=== PATIENT | female | born 1965 | race Caucasian/White ===

== ENCOUNTER 2017-10-31 15:03 | Observation (INO) | payer OTHER ==
--- OUTSIDE RECORDS SUMMARY | 2017-10-31 15:09 | XMS REPORT | Clinical Summary ---
:1965 Author Organization [facility] Address [address] [place] [address] Phone Care Team Providers Name Role Phone Unavailable Primary Care Provider Unavailable Allergies No Known Allergies Current Medications Prescription Sig. Disp. Refills Start Date End Date Status loratadine-pseudoephe Take 1 tablet Active drine (CLARITIN-D by mouth 12-HOUR) 5-120 mg per nightly. tablet naproxen Take 220 mg by Active (ALEVE,ANAPROX,MIDOL) mouth every 6 220 MG tablet (six) hours as needed. predniSONE Take 4 tabs 30 tablet 0 03/22/2016 Active (DELTASONE) 10 MG daily for 3 tablet days, then 3 tabs daily for 3 days, then 2 tabs daily for 3 days then, 1 tab daily for 3 days then stop. gabapentin Take 1 capsule 30 capsule 11 03/22/2016 03/22/2017 (NEURONTIN) 100 MG (100 mg total) capsule by mouth nightly. Active Problems Problem Noted Date Right facial numbness 03/21/2016 Numbness and tingling of right arm 03/21/2016 Social History Tobacco Use Types Packs/Day Years Used Date Never Smoker Sex Assigned at Date Recorded Not on file Last Filed Vital Signs Not on file Plan of Treatment Not on file Results Not on fileafter 10/30/2016
[2017-10-31] MEDS ORDERED: NA CHLORIDE 0.9% 1,000 ML ONE (16:04)
--- NOTE | 2017-10-31 16:26 | RAD REPORT ---
EXAM DESCRIPTION: RAD - Chest Single View - 10/31/2017 4:09 pm CLINICAL HISTORY: Chest pain, abdomen pain COMPARISON: March 2016 TECHNIQUE: AP portable chest image was obtained 1606 hours . FINDINGS: Lungs are clear. Heart and vasculature are normal. No measurable pleural effusion and no p neumothorax. No gross bony abnormality seen. No acute aortic findings suspected. IMPRESSION: No acute cardiopulmonary process. No significant change from comparison.
[2017-10-31 16:47] LABS: Absolute Lymphocytes (CBC) 1.5 K/uL (0.7-4.9); Absolute Monocytes 0.6 K/uL (0.1-1.3); Absolute Neutrophil 3.6 K/uL (1.8-8.0); Basophils % 0.6 % (0-1.3); Lymphocytes % 25.3 % (15.3-44.8); MCH 30.5 pg (27.0-35.0); MCV 90.1 fL (80-100); MPV 8.1 fL (7.6-11.3); Monocytes % 10.1 % (3.3-12.3); RBC Red Blood Cell Count 4.22 M/uL (3.86-4.86)
[2017-10-31 16:56] LABS: ALT/SGPT 29 U/L (12-78); AST/SGOT 23 U/L (15-37); Albumin 3.6 g/dL (3.4-5.0); Alkaline Phosphatase 91 U/L (45-117); BUN Blood Urea Nitrogen 10 mg/dL (7-18); Bicarbonate 27 mmol/L (21-32); Bilirubin Direct < 0.1 mg/dL (0-0.2); Bilirubin Total 0.2 mg/dL (0.2-1.0); Glucose Level 97 mg/dL (74-106); Lipase 216 U/L (73-393); Potassium 3.9 mmol/L (3.5-5.1); Protein, Total 7.7 g/dL (6.4-8.2); Sodium Level 138 mmol/L (136-145)
[2017-10-31] MEDS ORDERED: FENTANYL CITR 100 MCG/2 ML ONE ×2 (17:09→19:06)
[2017-10-31 17:47] LABS: Urine Bacteria <20 /HPF (<20); Urine Culture Reflex Order NOT NEEDED; Urine RBC NONE SEEN /HPF (NONE SEEN)
--- NOTE | 2017-10-31 18:12 | RAD REPORT ---
EXAM DESCRIPTION: CT - Abdomen Pelvis W Contrast - 10/31/2017 5:54 pm CLINICAL HISTORY: Abdominal pain. Left lower quadrant pain and nausea COMPARISON: 2014 TECHNIQUE: Computed axial tomography of the abdomen and pelvis was obtained. 100 cc Isovue-300 is ad ministered intravenously. Oral contrast was given. All CT scans are performed using dose optimization technique as appropriate and may include automated exposure control or mA/KV adjustment according to patient size. FINDINGS: The liver, spleen, pancreas, adrenals and kidneys appear unremarkable. Mild to moderate stranding is present adjacent to proximal sigmoid colon. Diverticula are seen. An ab scess is not noted. Pneumoperitoneum is not seen. A tiny umbilical hernia is present IMPRESSION: Mild to moderate sigmoid diverticulitis 1
[2017-10-31] MEDS ORDERED: CIPROFLOXACIN 400mg IV 400 MG/200 ML BAG IV ONE (19:06)
[2017-10-31] MEDS ORDERED: METRONIDAZOLE 500mg IVPB 500 MG/100 ML BAG IV ONE (19:06)
--- NOTE | 2017-10-31 19:37 | EDPHYS ---
Physician Documentation [facility] Name: Nichole Gamino Age: 52 yrs Sex: Female : 1965 Arrival Date: 10/31/2017 Time: 15:05 Bed 30 Private MD: Dacia Wolf H ED Physician Justin Todd HPI: 10/31 18:34 This 52 yrs old Female presents to ER via Ambulatory with complaints of snw Shoulder Pain, RIB PAIN, CHILLS. 18:34 The patient or guardian complains of pain, that is acute. left trapezius and left lower snw quadrant. Context: resulted from an unknown reason, The patient reports no decreased range of motion. The patient reports no obvious deformity. Onset: The symptoms/episode began/occurred suddenly, this morning. Associated signs and symptoms: Pertinent positives: abdominal pain. Severity of symptoms: At their worst the symptoms were moderate. The patient has not experienced similar symptoms in the past. The patient has not recently seen a physician, the patient's primary care provider is Dr. Dr. Wolf. 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 - Social history:: Smoking status: Patient/guardian denies using tobacco. - Ebola Screening: : Patient denies travel to an Ebola-affected area in the 21 days before illness onset. ROS: 17:30 Constitutional: Negative for fever, chills, and weight loss, Eyes: Negative for injury, snw pain, redness, and discharge, ENT: Negative for injury, pain, and discharge, Neck: Negative for injury, pain, and swelling, Respiratory: Negative for shortness of breath, cough, wheezing, and pleuritic chest pain, Abdomen/GI: Stabbing abdominal pain, denies nausea, vomiting, diarrhea, and constipation, Back: Negative for injury and pain, : Negative for injury, bleeding, discharge, and swelling, MS/Extremity: Negative for injury and deformity, Skin: Negative for injury, rash, and discoloration, Neuro: Negative for headache, weakness, numbness, tingling, and seizure. 17:30 Cardiovascular: Positive for burning pain to left shoulder. Exam: 17:30 Constitutional: This is a well developed, well nourished patient who is awake, alert, snw and in no acute distress. Head/Face: Normocephalic, atraumatic. Eyes: Pupils equal round and reactive to light, extra-ocular motions intact. Lids and lashes normal. Conjunctiva and sclera are non-icteric and not injected. Cornea within normal limits. Periorbital areas with no swelling, redness, or edema. ENT: Nares patent. No nasal discharge, no septal abnormalities noted. Tympanic membranes are normal and external auditory canals are clear. Oropharynx with no redness, swelling, or masses, exudates, or evidence of obstruction, uvula midline. Mucous membranes moist. Neck: Trachea midline, no thyromegaly or masses palpated, and no cervical lymphadenopathy. Supple, full range of motion without nuchal rigidity, or vertebral point tenderness. No Meningismus. Chest/axilla: Normal chest wall appearance and motion. Nontender with no deformity. No lesions are appreciated. Cardiovascular: Regular rate and rhythm with a normal S1 and S2. No gallops, murmurs, or rubs. Normal PMI, no JVD. No pulse deficits. Back: No spinal tenderness. No costovertebral tenderness. Full range of motion. Skin: Warm, dry with normal turgor. Normal color with no rashes, no lesions, and no evidence of cellulitis. MS/ Extremity: Pulses equal, no cyanosis. Neurovascular intact. Full, normal range of motion. Neuro: Awake and alert, GCS 15, oriented to person, place, time, and situation. Cranial nerves II-XII grossly intact. Motor strength 5/5 in all extremities. Sensory grossly intact. Cerebellar exam normal. Normal gait. Psych: Awake, alert, with orientation to person, place and time. Behavior, mood, and affect are within normal limits. 17:30 Abdomen/GI: Inspection: abdomen appears normal, Bowel sounds: normal, Palpation: moderate abdominal tenderness, in the left lower quadrant. Vital Signs: 15:28 BP 147 / 100; Pulse 95; Resp 20; Temp 98.2; Pulse Ox 98% on R/A; Weight 90.72 kg (R); aj1 Height 5 ft. 8 in. (172.72 cm); Pain 6/10; 16:48 BP 146 / 76; Pulse 76; Resp 18; Pulse Ox 100% on R/A; Pain 4/10; mg2 18:31 BP 128 / 88; Pulse 75; Resp 18; Pulse Ox 98% ; tl3 19:59 BP 116 / 67; Pulse 74; Resp 18; Pulse Ox 100% on R/A; mg2 15:28 Body Mass Index 30.41 (90.72 kg, 172.72 cm) aj1 MDM: 15:51 Patient medically screened. snw 18:54 Data reviewed: vital signs, nurses notes. Data interpreted: Pulse oximetry: on room air snw is 98 %. Interpretation: normal. 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 However, pt with continued pain. 19:34 Physician consultation: Carolyn Bridges MD was called at 19:35, was contacted at 19:35, snw regarding admission, to the medical/surgical unit. 10/31 15:43 Order name: Basic Metabolic Panel; Complete Time: 17:02 snw 10/31 15:43 Order name: CBC with Diff; Complete Time: 17:02 snw 10/31 15:43 Order name: Creatinine for Radiology; Complete Time: 17:02 snw 10/31 15:43 Order name: Hepatic Function; Complete Time: 17:02 snw 10/31 15:43 Order name: Lipase; Complete Time: 17:02 snw 10/31 15:43 Order name: Urine Microscopic Only; Complete Time: 17:51 snw 10/31 15:43 Order name: Blood Culture Adult (2) snw 10/31 15:44 Order name: Chest Single View XRAY; Complete Time: 16:31 snw 10/31 15:44 Order name: CT Abd/Pelvis - W/Contrast; Complete Time: 18:17 snw 10/31 15:43 Order name: IV Saline Lock; Complete Time: 16:17 snw 10/31 15:43 Order name: Labs collected and sent; Complete Time: 16:17 snw 10/31 18:37 Order name: NPO snw 10/31 18:37 Order name: Misc. Order: Please increase IVF rate to 150ml/hr; Complete Time: 18:56 snw Administered Medications: 16:17 Drug: NS 0.9% 1000 ml Route: IV; Rate: 75 ml/hr; Site: left antecubital; mg2 21:28 Follow up: Response: No adverse reaction; IV Status: Infusion continued upon admission mg2 17:19 Drug: fentaNYL (PF) 50 mcg Route: IVP; Infused Over: 2 mins; Site: left antecubital; tl3 18:00 Follow up: Response: No adverse reaction; Marked relief of symptoms mg2 18:32 Follow up: Response: No adverse reaction; Pain is decreased tl3 19:17 Drug: Flagyl 500 mg Volume: 100 ml; Route: IVPB; Rate: 200 ml/hr; Infused Over: 30 mg2 mins; Site: left antecubital; 21:05 Follow up: Response: No adverse reaction; IV Status: Completed infusion mg2 21:28 Follow up: Response: No adverse reaction; IV Status: Completed infusion mg2 19:17 Drug: fentaNYL (PF) 25 mcg Route: IVP; Site: left antecubital; mg2 21:27 Follow up: Response: No adverse reaction; Marked relief of symptoms mg2 19:58 Drug: Ciprofloxacin 400 mg Volume: 200 ml; Route: IVPB; Infused Over: 60 mins; Site: mg2 left antecubital; 21:28 Follow up: Response: No adverse reaction; IV Status: Completed infusion mg2 Disposition: 11/01 06:55 Co-signature as Attending Physician, Justin Todd MD I agree with the assessment and noreen plan of care. Disposition: 10/31/17 19:37 Hospitalization ordered by Carolyn Bridges for Observation. Preliminary diagnosis is Diverticulitis of large intestine without perforation or abscess without bleeding. - Bed requested for Telemetry/MedSurg (observation). - Status is Observation. mg2 - Condition is Stable. - Problem is new. - Symptoms are unchanged. UTI on Admission? No Signatures: Dispatcher [employer] EDAnastasiya Balderas2 Candie Hernandez RN RN aj1 Justin Todd MD MD cha Therrien, Shelly, JEEP MECHANIC-C JEEP MECHANIC-Csnw Kary, Shanda, RN RN tl3 Phil Lawson, RN RN mg2 Corrections: (The following items were deleted from the chart) 10/31 20:22 19:37 Hospitalization Ordered by Carolyn Bridges MD for Observation. Preliminary rg2 diagnosis is Diverticulitis of large intestine without perforation or abscess without bleeding. Bed requested for Telemetry/MedSurg (observation). Status is Observation. Condition is Stable. Problem is new. Symptoms are unchanged. UTI on Admission? No. snw 21:29 20:22 10/31/2017 19:37 Hospitalization Ordered by Carolyn Bridges MD for Observation. mg2 Preliminary diagnosis is Diverticulitis of large intestine without perforation or abscess without bleeding. Bed requested for Telemetry/MedSurg (observation). Status is Observation. Condition is Stable. Problem is new. Symptoms are unchanged. UTI on Admission? No. rg2
--- NOTE | 2017-10-31 19:37 | ER ---
Nurse's Notes [facility] Emergency Department Name: Nichole Gamino Age: 52 yrs Sex: Female : 1965 Arrival Date: 10/31/2017 Time: 15:05 Bed 30 Private MD: Dacia Wolf H Diagnosis: Diverticulitis of large intestine without perforation or abscess without bleeding Presentation: 10/31 15:24 Presenting complaint: Patient states: Sharp pain between her shoulder blades and a aj1 burning pain to the lower left side of her abdomen since Monday, but the pain became worse today. Reports nausea, denies vomiting, diarrhea. Denies shortness of breath, chest pain. Denies fever, dizziness, syncope. Transition of care: patient was not received from another setting of care. Onset of symptoms was October 31, 2017. Risk Assessment: Do you want to hurt yourself or someone else? Patient reports no desire to harm self or others. Initial Sepsis Screen: Does the patient meet any 2 criteria? HR > 90 bpm. No. Patient's initial sepsis screen is negative. Does the patient have a suspected source of infection? Yes: Acute abdominal pain. Care prior to arrival: None. 15:24 Method Of Arrival: Ambulatory aj1 15:24 Acuity: GIBSON 3 aj1 Triage Assessment: 15:28 General: Appears in no apparent distress. uncomfortable, Behavior is anxious, crying, aj1 restless. Pain: Complains of pain in thoracic area and left lower quadrant Pain currently is 6 out of 10 on a pain scale. Neuro: Level of Consciousness is awake, alert, obeys commands, Denies dizziness. Cardiovascular: Denies chest pain, palpitations, shortness of breath, syncope, vomiting, Patient's skin is warm and dry. Respiratory: Airway is patent Respiratory effort is even, unlabored, Respiratory pattern is regular, symmetrical. GI: Reports lower abdominal pain, nausea, Patient currently denies diarrhea, vomiting. 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 - Social history:: Smoking status: Patient/guardian denies using tobacco. - Ebola Screening: : Patient denies travel to an Ebola-affected area in the 21 days before illness onset. Screenin:18 Abuse screen: Denies threats or abuse. Denies injuries from another. Nutritional mg2 screening: No deficits noted. Tuberculosis screening: No symptoms or risk factors identified. Fall Risk IV access (20 points). Assessment: 16:18 General: Appears in no apparent distress. comfortable, Behavior is calm, cooperative. mg2 Pain: Complains of pain in back and thoracic area. Neuro: Level of Consciousness is awake, alert, obeys commands, Oriented to person, place, time, situation. Cardiovascular: Capillary refill < 3 seconds Patient's skin is warm and dry. Respiratory: Airway is patent Respiratory effort is even, unlabored, Respiratory pattern is regular, symmetrical. GI: No signs and/or symptoms were reported involving the gastrointestinal system. : No signs and/or symptoms were reported regarding the genitourinary system. EENT: No signs and/or symptoms were reported regarding the EENT system. Derm: Skin is intact, Skin is pink, warm \T\ dry. normal. Musculoskeletal: Circulation, motion, and sensation intact. 18:31 Reassessment: Patient and/or family updated on plan of care and expected duration. Pain tl3 level reassessed. Patient is alert, oriented x 3, equal unlabored respirations, skin warm/dry/pink. pt states that she feels better after pain med, ambulated to restroom. 19:59 Reassessment: Patient appears in no apparent distress at this time. Patient and/or mg2 family updated on plan of care and expected duration. Pain level reassessed. Patient is alert, oriented x 3, equal unlabored respirations, skin warm/dry/pink. 20:36 Reassessment: Patient appears in no apparent distress at this time. Patient and/or mg2 family updated on plan of care and expected duration. Pain level reassessed. Patient is alert, oriented x 3, equal unlabored respirations, skin warm/dry/pink. Charge Nurse Margo said the receiving nurse is still busy. they will call back to get the report. Vital Signs: 15:28 BP 147 / 100; Pulse 95; Resp 20; Temp 98.2; Pulse Ox 98% on R/A; Weight 90.72 kg (R); aj1 Height 5 ft. 8 in. (172.72 cm); Pain 6/10; 16:48 BP 146 / 76; Pulse 76; Resp 18; Pulse Ox 100% on R/A; Pain 4/10; mg2 18:31 BP 128 / 88; Pulse 75; Resp 18; Pulse Ox 98% ; tl3 19:59 BP 116 / 67; Pulse 74; Resp 18; Pulse Ox 100% on R/A; mg2 15:28 Body Mass Index 30.41 (90.72 kg, 172.72 cm) aj1 ED Course: 15:05 Patient arrived in ED. sb2 15:06 Dacia Wolf DO is Private Physician. sb2 15:27 Triage completed. aj1 15:28 Arm band placed on. aj1 15:38 Samantha Merida FNP-C is PHCP. snw 15:38 Justin Todd MD is Attending Physician. snw 15:42 Phil Lawson RN is Primary Nurse. mg2 15:47 Oral contrast given. vr 16:07 X-ray completed. Portable x-ray completed in exam room. Patient tolerated procedure bb2 well. 16:09 Chest Single View XRAY In Process Unspecified. EDMS 16:18 No provider procedures requiring assistance completed. Inserted saline lock: 22 gauge mg2 in left antecubital area, using aseptic technique. Blood collected. by supervisor endless track vehicle [place]. 16:20 Patient has correct armband on for positive identification. Placed in gown. Bed in low mg2 position. Call light in reach. Side rails up X2. Pulse ox on. NIBP on. Door closed. Warm blanket given. 17:53 CT Abd/Pelvis - W/Contrast In Process Unspecified. EDMS 19:35 Carolyn Bridges MD is Hospitalizing Provider. snw 21:21 Patient admitted, IV remains in place. mg2 Administered Medications: 16:17 Drug: NS 0.9% 1000 ml Route: IV; Rate: 75 ml/hr; Site: left antecubital; mg2 21:28 Follow up: Response: No adverse reaction; IV Status: Infusion continued upon admission mg2 17:19 Drug: fentaNYL (PF) 50 mcg Route: IVP; Infused Over: 2 mins; Site: left antecubital; tl3 18:00 Follow up: Response: No adverse reaction; Marked relief of symptoms mg2 18:32 Follow up: Response: No adverse reaction; Pain is decreased tl3 19:17 Drug: Flagyl 500 mg Volume: 100 ml; Route: IVPB; Rate: 200 ml/hr; Infused Over: 30 mg2 mins; Site: left antecubital; 21:05 Follow up: Response: No adverse reaction; IV Status: Completed infusion mg2 21:28 Follow up: Response: No adverse reaction; IV Status: Completed infusion mg2 19:17 Drug: fentaNYL (PF) 25 mcg Route: IVP; Site: left antecubital; mg2 21:27 Follow up: Response: No adverse reaction; Marked relief of symptoms mg2 19:58 Drug: Ciprofloxacin 400 mg Volume: 200 ml; Route: IVPB; Infused Over: 60 mins; Site: mg2 left antecubital; 21:28 Follow up: Response: No adverse reaction; IV Status: Completed infusion mg2 Outcome: 19:37 Decision to Hospitalize by Provider. snw 21:21 Admitted to Med/surg accompanied by tech, via wheelchair, room 215, with chart, Report mg2 called to RN Trish 21:21 Condition: stable 21:21 Instructed on the need for admit, Demonstrated understanding of instructions. 21:29 Patient left the ED. mg2 Signatures: Dispatcher [employer] Candie Seals, RN RN aj1 Samantha Merida, AUTOMATION CLERK-C AUTOMATION CLERK-Csnw Yanely Christine Brittany bbSally Marcos2 Shanda Preston RN RN tl3 Phil Lawson RN RN mg2
[2017-10-31] MEDS ORDERED: ONDANSETRON 4 MG/2 ML VIAL IV PRN (20:41)
[2017-10-31] MEDS ORDERED: Levofloxacin500mg IV 500 MG/100 ML BAG IV SCH (21:00)
[2017-10-31] MEDS: MORPHINE 4 MG/ML SYR IV PRN (22:33)
[2017-10-31] MEDS: NA CHLORIDE 0.9% 1,000 ML IV SCH (22:38)
[2017-10-31 22:54] VITALS: BMI 31.0
[2017-11-01] MEDS: METRONIDAZOLE 500mg IVPB 500 MG/100 ML BAG IV SCH ×2 (01:23→10:15)
[2017-11-01] MEDS: ACETAMINOPHEN 500 MG TAB PO PRN ×2 (01:30→08:06)
[2017-11-01] MEDS: MORPHINE 4 MG/ML SYR IV PRN ×2 (04:24→11:22)
[2017-11-01 05:02] VITALS: BP 110/60; TEMP 97.8
[2017-11-01 05:21] LABS: Absolute Lymphocytes (CBC) 1.9 K/uL (0.7-4.9); Absolute Monocytes 0.6 K/uL (0.1-1.3); Absolute Neutrophil 2.5 K/uL (1.8-8.0); Basophils % 0.8 % (0-1.3); Eosinophils % 2.5 % (0-4.4); Hematocrit 34.9 % (36.0-45.0); Lymphocytes % 36.8 % (15.3-44.8); MCH 30.6 pg (27.0-35.0); MCV 89.5 fL (80-100); Monocytes % 11.9 % (3.3-12.3)
[2017-11-01 05:38] LABS: Bilirubin Total 0.3 mg/dL (0.2-1.0); Potassium 3.9 mmol/L (3.5-5.1)
[2017-11-01 05:39] LABS: Magnesium 2.2 mg/dL (1.8-2.4); Phosphorus 3.3 mg/dL (2.5-4.9); Protein, Total 6.2 g/dL (6.4-8.2)
[2017-11-01] MEDS ORDERED: KCL 20 MEQ/100 mL IVPB 20 MEQ/100 ML BAG IV SCH (07:00)
[2017-11-01] MEDS: NA CHLORIDE 0.9% 1,000 ML IV SCH (07:00)
[2017-11-01] MEDS ORDERED: ENOXAPARIN 40 MG/0.4 ML SQ SCH (09:00)
--- NOTE | 2017-11-01 09:48 | P.HP ---
Certification for Inpatient Patient admitted to: Observation With expected LOS: <2 Midnights Patient will require the following post-hospital care: None Practitioner: I am a practitioner with admitting privileges, knowledge of patient current condition, hospital course, and medical plan of care. Services: Services provided to patient in accordance with Admission requirements found in Title 42 Section 412.3 of the Code of Federal Regulations Patient History Date of Service: 10/31/17 Reason for admission: Diverticulitis History of Present Illness: Patient is a 52-year-old female who came into the hospital with abdominal pain. Pain was mainly in the left lower quadrant. Pain did not radiate. She denies any lower GI bleeding. Patient denies any nausea or vomiting. Patient states her pain was similar to which she had 3 years ago when she was diagnose with diverticulitis. Caught her primary care provider who called in [place] and Flagyl. However, her pharmacy did not fill it. She continued to get worse so she came into the emergency room and her workup in the emergency room revealed diverticulitis. Patient be admitted to the hospital for further workup. She denies ever having a colonoscopy. We have advise getting this done in the next 6-12 weeks. She will be admitted for IV antibiotic therapy and will probably start her on a clear liquid diet later today. Allergies Latex, Natural Rubber Allergy (Mild, Verified 10/31/17 22:43) Unknown lysol Allergy (Mild, Uncoded 10/31/17 22:43) Hives/Rash Home Medications: NK [No Home Meds] 10/31/17 - Past Medical/Surgical History Has patient received pneumonia vaccine in the past: Yes Diabetic: No -: diverticulitis -: knee surgery - Family History Father Family History: Reviewed- Non-Contributory - Social History Smoking Status: Never smoker Alcohol use: No CD- Drugs: No Caffeine use: Yes Place of Residence: Home Review of Systems 10-point ROS is otherwise unremarkable Physical Examination - Vital Signs Temperature: 97.8 F Blood Pressure: 110/60 Pulse: 73 Respirations: 20 Pulse Ox (%): 97 - Physical Exam General: Alert, In no apparent distress, Oriented x3 HEENT: Atraumatic, PERRLA, Mucous membr. moist/pink, EOMI, Sclerae nonicteric Neck: Supple, 2+ carotid pulse no bruit, No LAD, Without JVD or thyroid abnormality Respiratory: Clear to auscultation bilaterally, Normal air movement Cardiovascular: Regular rate/rhythm, Normal S1 S2, No murmurs Gastrointestinal: Normal bowel sounds, Soft and benign, No guarding, Distended, Tenderness, Rebound Musculoskeletal: No clubbing, No swelling, No tenderness Integumentary: No rashes Neurological: Normal gait, Normal speech, Normal strength at 5/5 x4 extr, Normal tone, Sensation intact, Cranial nerves 3-12 intact, Normal affect Lymphatics: No axilla or inguinal lymphadenopathy - Studies Laboratory Data (last 24 hrs) 10/31/17 16:15: Creatinine 0.80 10/31/17 16:15: WBC 5.8, Hgb 12.9, Hct 38.0, Plt Count 272 10/31/17 16:15: Sodium 138, Potassium 3.9, BUN 10, Creatinine 0.80, Glucose 97, Total Bilirubin 0.2, AST 23, ALT 29, Alkaline Phosphatase 91, Lipase 216 Assessment & Plan - Problems (Diagnosis) (1) Diverticulitis Current Visit: Yes Status: Acute - Plan 1. Continue with IV hydration 2. Continue with IV antibiotics 3. Continue with pain control 4. NPO 5. GI consultation; outpatient colonoscopy in 6-12 weeks 6. Serial H&H, and we will monitor CBC, BMP, LFTs and lipase along with electrolytes. 7. GI and DVT prophylaxis - Advance Directives Does patient have a Living Will: No Does patient have a Durable POA for Healthcare: No - Code Status/Comfort Care Code Status Assessed: Yes Code Status: Full Code Critical Care: No Time Spent Managing PTS Care (In Minutes): 50
[2017-11-01 12:47] VITALS: O2SAT 99
--- NOTE | 2017-11-01 14:38 | P.SSS ---
Patient History Date of Service: 11/01/17 Reason for admission: Diverticulitis History of Present Illness: Patient is a 52-year-old female who came into the hospital with abdominal pain. Pain was mainly in the left lower quadrant. Pain did not radiate. She denies any lower GI bleeding. Patient denies any nausea or vomiting. Patient states her pain was similar to which she had 3 years ago when she was diagnose with diverticulitis. Caught her primary care provider who called in Cipro and Flagyl. However, her pharmacy did not fill it. She continued to get worse so she came into the emergency room and her workup in the emergency room revealed diverticulitis. Patient be admitted to the hospital for further workup. She denies ever having a colonoscopy. We have advise getting this done in the next 6-12 weeks. She will be admitted for IV antibiotic therapy and will probably start her on a clear liquid diet later today. Allergies Latex, Natural Rubber Allergy (Mild, Verified 10/31/17 22:43) Unknown lysol Allergy (Mild, Uncoded 10/31/17 22:43) Hives/Rash Home Medications: Ciprofloxacin HCl [Cipro 250 MG Tablet*] 250 mg PO BID #20 tab 11/01/17 metroNIDAZOLE [Flagyl] 500 mg PO Q8H #30 tab 11/01/17 - Past Medical/Surgical History Has patient received pneumonia vaccine in the past: Yes Diabetic: No -: diverticulitis -: knee surgery - Social History Smoking Status: Never smoker Alcohol use: No CD- Drugs: No Caffeine use: Yes Place of Residence: Home Review of Systems General: As per HPI Physical Examination - Vital Signs Temperature: 97.8 F Blood Pressure: 110/60 Pulse: 73 Respirations: 20 Pulse Ox (%): 97 - Physical Exam General: Alert, In no apparent distress HEENT: Atraumatic, PERRLA, Mucous membr. moist/pink, EOMI, Sclerae nonicteric Neck: Supple, 2+ carotid pulse no bruit, No LAD, Without JVD or thyroid abnormality Respiratory: Clear to auscultation bilaterally, Normal air movement Cardiovascular: Regular rate/rhythm, Normal S1 S2 Gastrointestinal: Normal bowel sounds, No tenderness Musculoskeletal: No tenderness Integumentary: No rashes Neurological: Normal gait, Normal speech, Normal strength at 5/5 x4 extr, Normal tone, Normal affect Lymphatics: No axilla or inguinal lymphadenopathy - Studies Laboratory Data (last 24 hrs) 10/31/17 16:15: Creatinine 0.80 10/31/17 16:15: WBC 5.8, Hgb 12.9, Hct 38.0, Plt Count 272 10/31/17 16:15: Sodium 138, Potassium 3.9, BUN 10, Creatinine 0.80, Glucose 97, Total Bilirubin 0.2, AST 23, ALT 29, Alkaline Phosphatase 91, Lipase 216 - Diagnosis (Problem(s)) (1) Diverticulitis Onset Date: 11/01/17 Current Visit: Yes Status: Acute Treatment Summary: Overall during the hospital stay patient remained stable The patient was initially admitted to the hospital for diverticulitis failed outpatient therapy however patient did not feel any medications as patient did not have it appropriate time for response with the appropriate antibiotics. Patient however was admitted to the hospital. Patient had resolution of her abdominal pain nausea and vomiting within 24 hr of IV antibiotics and IV fluids. Patient at that time was switched over to clear liquid diet which she tolerated well and thus was discharged home on Cipro and Flagyl. Of note patient did have a vapaing pen in the room that she was smoking. Patient was advised on tobacco cessation including the Vaping pen. Patient however refused to stop smoking and stated that she would like to continue having her Vaping Pen at bedside as her security. Patient was notified that the request cannot be accommodated due to health hazards. At that time patient stated that she would like to leave the hospital. Patient again was notified that she is appropriate for discharge at this time and would be following up with GI doctor outpatient and was given a prescription for Cipro and Flagyl how ever she was a dictated extensively on tobacco cessation and weight being. Patient demonstrated understanding and thus was discharged home under stable condition. - Disposition Disposition: ROUTINE DISCHARGE Condition: GOOD Diet: [place] Activity: Ad marvin
== END 2017-11-01 14:44 | disposition home or self-care (01) ==
LOC: ER 15:03 → ERHOLD 20:00 → 2ND 20:27 → OBSVTOIN 11-01 10:08 → INTOOBSV 11-01 10:08
PROVIDERS: ADMIT Hospitalist; ATTEND Hospitalist
DX: K57.92 Diverticulitis of intestine, part unspecified, without perforation or abscess without bleeding (principal); Z91.040 Latex allergy status; F17.290 Nicotine dependence, other tobacco product, uncomplicated
CPT/HCPCS: 36415; 71045; 74177; 80048; 80053; 80076; 81015; 83690; 83735; 84100; 85025; 87040; 96361; 96365; 96368; 96375; 99285; G0378; J0744; J1650; J2405; J3010; J7030; Q9967

== ENCOUNTER 2017-11-02 13:51 | Emergency (ER) | payer OTHER ==
--- OUTSIDE RECORDS SUMMARY | 2017-11-02 13:54 | XMS REPORT | Clinical Summary ---
:1965 Author Organization [facility] Address [address] [place] [address] Phone Care Team Providers Name Role Phone [...] Not on file Results Not on fileafter 11/01/2016
[2017-11-02] MEDS ORDERED: KETOROLAC 30 MG/ML INJ ONE (15:54)
[2017-11-02] MEDS ORDERED: NA CHLORIDE 0.9% 1,000 ML ONE (15:54)
[2017-11-02 16:08] LABS: Absolute Lymphocytes (CBC) 1.7 K/uL (0.7-4.9); Absolute Monocytes 0.6 K/uL (0.1-1.3); Absolute Neutrophil 3.9 K/uL (1.8-8.0); Basophils % 0.8 % (0-1.3); Eosinophils % 0.5 % (0-4.4); Hematocrit 37.4 % (36.0-45.0); Lymphocytes % 27.8 % (15.3-44.8); MCH 30.2 pg (27.0-35.0); MCV 89.1 fL (80-100); MPV 8.1 fL (7.6-11.3); Monocytes % 9.4 % (3.3-12.3)
--- NOTE | 2017-11-02 16:25 | ER ---
Nurse's Notes [facility] Name: Nichole Gamino Age: 52 yrs Sex: Female : 1965 Arrival Date: 11/02/2017 Time: 13:58 Bed 25 Private MD: Dacia Wolf H Diagnosis: Diverticulitis of large intestine without perforation or abscess without bleeding Presentation: 11/02 14:08 Presenting complaint: Patient states: LLQ pain and nausea x 2 days. Recently hb hospitalized for diverticulitis. Transition of care: patient was not received from another setting of care. Onset of symptoms was November 01, 2017. Risk Assessment: Do you want to hurt yourself or someone else? Patient reports no desire to harm self or others. Care prior to arrival: None. 14:08 Method Of Arrival: Ambulatory hb 14:08 Acuity: GIBSON 3 hb 15:08 Initial Sepsis Screen: Does the patient meet any 2 criteria? No. Patient's initial ed1 sepsis screen is negative. Does the patient have a suspected source of infection? No. Patient's initial sepsis screen is negative. Triage Assessment: 15:08 General: Appears uncomfortable, Behavior is calm, cooperative. 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 - Social history:: Smoking status: Patient/guardian denies using tobacco. - Ebola Screening: : No symptoms or risks identified at this time. Screenin:08 Abuse screen: Denies threats or abuse. Denies injuries from another. Nutritional ed1 screening: No deficits noted. Tuberculosis screening: No symptoms or risk factors identified. Fall Risk None identified. Assessment: 15:08 General: Pt reports being discharged from the hospital yesterday for diverticulosis. Pt ed1 states "I needed to stay but I got into an argument with Dr. Escobar.". Pain: Complains of pain in abdomen Pain radiates to back Pain currently is 9 out of 10 on a pain scale. Quality of pain is described as burning, sharp, Pain began 2-3 days ago. Is continuous. Neuro: Level of Consciousness is awake, alert, obeys commands, Oriented to person, place, time, situation. Cardiovascular: Denies chest pain, Heart tones S1 S2 present. Respiratory: Airway is patent Respiratory effort is even, unlabored, Respiratory pattern is regular, symmetrical, Breath sounds are clear bilaterally. GI: Abdomen is non-distended, Pt reports last meal "3 days ago" large soda cup noted at bedside. Bowel sounds present X 4 quads. Abd is soft and non tender X 4 quads. Reports lower abdominal pain, upper abdominal pain, nausea, Patient currently denies diarrhea, vomiting. : No signs and/or symptoms were reported regarding the genitourinary system. EENT: No signs and/or symptoms were reported regarding the EENT system. Derm: Skin is pink, warm \\T\\ dry. Musculoskeletal: Circulation, motion, and sensation intact. 15:10 Reassessment: I agree with previous assessment. hb 16:12 Reassessment: Patient appears in no apparent distress at this time. No changes from ed1 previously documented assessment. Patient and/or family updated on plan of care and expected duration. Pain level reassessed. Patient is alert, oriented x 3, equal unlabored respirations, skin warm/dry/pink. Patient states symptoms have not improved. 16:37 Reassessment: Patient appears in no apparent distress at this time. No changes from ed1 previously documented assessment. Patient and/or family updated on plan of care and expected duration. Pain level reassessed. Patient is alert, oriented x 3, equal unlabored respirations, skin warm/dry/pink. Patient states symptoms have not improved. Vital Signs: 14:09 BP 153 / 87; Pulse 108; Resp 16; Temp 98.2; Pulse Ox 100% on R/A; Pain 9/10; hb 15:16 BP 159 / 96; Pulse 84; Resp 17; Pulse Ox 100% on R/A; Pain 10/10; ed1 16:12 BP 142 / 69; Pulse 84; Resp 18; Pulse Ox 100% on R/A; Pain 9/10; ed1 ED Course: 13:58 Patient arrived in ED. sb2 13:58 Dacia Wolf DO is Private Physician. sb2 14:09 Triage completed. hb 14:10 Arm band placed on left wrist. hb 14:52 Ramesh Gauthier MD is Attending Physician. 15:05 Ana Maria Gallo LVN is Primary Nurse. ed1 15:08 Patient has correct armband on for positive identification. Placed in gown. Bed in low ed1 position. Call light in reach. Pulse ox on. NIBP on. 15:45 Missed attempt(s): 22 gauge in left antecubital area. Bleeding controlled, band aid jp3 applied, catheter tip intact. Inserted saline lock: 22 gauge in right forearm, using aseptic technique. Blood collected. 15:50 Initial lab(s) drawn, by id, sent to lab. Inserted saline lock: 22 gauge in right jp3 forearm, using aseptic technique. Blood collected. 16:01 Side rails up X 1. Warm blanket given. Pillow given. jp3 16:20 Urine collected: clean catch specimen, clear, ne colored. jp3 16:24 Dacia Wolf DO is Referral Physician. 16:37 No provider procedures requiring assistance completed. IV discontinued, intact, ed1 bleeding controlled, No redness/swelling at site. Pressure dressing applied. Administered Medications: 15:52 Drug: TORadol 15 mg Route: IVP; Site: right forearm; rv 16:41 Follow up: Response: No adverse reaction; Pain is decreased ed1 15:53 Drug: NS 0.9% 1000 ml Route: IV; Rate: 1 bolus; Site: right forearm; rv 16:41 Follow up: IV Status: Completed infusion; IV Intake: 1000ml ed1 Intake: 16:41 IV: 1000ml; Total: 1000ml. ed1 Outcome: 16:24 Discharge ordered by . 16:37 Discharged to home ambulatory. ed1 16:37 Condition: good 16:37 Discharge instructions given to patient, Instructed on discharge instructions, follow up and referral plans. medication usage, Demonstrated understanding of instructions, follow-up care, medications, Prescriptions given X 3. 16:42 Patient left the ED. ed1 Signatures: Ana Maria Gallo LVN LVN ed1 Kenya Rodriguez RN RN hb Starr, Gregory, MD MD Sally Burgess 2 Man Wall RN RN Xavi Avalos jp3
--- NOTE | 2017-11-02 16:25 | EDPHYS ---
Physician Documentation [facility] Name: Nichole Gamino Age: 52 yrs Sex: Female : 1965 Arrival Date: 11/02/2017 Time: 13:58 Bed 25 Private MD: Dacia Wolf H ED Physician Ramesh Gauthier HPI: 11/02 17:20 This 52 yrs old Female presents to ER via Ambulatory with complaints of gs Abdominal Pain. 17:20 The patient presents with abdominal pain in the left lower quadrant. Onset: The gs symptoms/episode began/occurred 3 day(s) ago. The symptoms do not radiate. Associated signs and symptoms: Pertinent positives: nausea, Pertinent negatives: fever. The symptoms are described as crampy, shooting. Modifying factors: The symptoms are alleviated by nothing, the symptoms are aggravated by nothing. Severity of pain: At its worst the pain was moderate in the emergency department the pain is unchanged. The patient has not experienced similar symptoms in the past. The patient has been recently seen at the [facility] Emergency Department, this week, The patient has been recently been admitted at [facility], was discharged earlier today, either left ama or dc was smoking in room per pt a vape. was given rx hasnt picked up yet. 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 - Social history:: Smoking status: Patient/guardian denies using tobacco. - Ebola Screening: : No symptoms or risks identified at this time. ROS: 17:20 All other systems are negative. gs Exam: 17:20 Head/Face: Normocephalic, atraumatic. Eyes: Pupils equal round and reactive to light, gs extra-ocular motions intact. Lids and lashes normal. Conjunctiva and sclera are non-icteric and not injected. Cornea within normal limits. Periorbital areas with no swelling, redness, or edema. ENT: Nares patent. No nasal discharge, no septal abnormalities noted. Tympanic membranes are normal and external auditory canals are clear. Oropharynx with no redness, swelling, or masses, exudates, or evidence of obstruction, uvula midline. Mucous membranes moist. Neck: Trachea midline, no thyromegaly or masses palpated, and no cervical lymphadenopathy. Supple, full range of motion without nuchal rigidity, or vertebral point tenderness. No Meningismus. Chest/axilla: Normal chest wall appearance and motion. Nontender with no deformity. No lesions are appreciated. Cardiovascular: Regular rate and rhythm with a normal S1 and S2. No gallops, murmurs, or rubs. Normal PMI, no JVD. No pulse deficits. Respiratory: Lungs have equal breath sounds bilaterally, clear to auscultation and percussion. No rales, rhonchi or wheezes noted. No increased work of breathing, no retractions or nasal flaring. 17:20 Constitutional: The patient appears alert, awake. 17:22 Back: No spinal tenderness. No costovertebral tenderness. Full range of motion. gs Skin: Warm, dry with normal turgor. Normal color with no rashes, no lesions, and no evidence of cellulitis. MS/ Extremity: Pulses equal, no cyanosis. Neurovascular intact. Full, normal range of motion. Neuro: Awake and alert, GCS 15, oriented to person, place, time, and situation. Cranial nerves II-XII grossly intact. Motor strength 5/5 in all extremities. Sensory grossly intact. Cerebellar exam normal. Normal gait. 17:22 Abdomen/GI: Palpation: moderate abdominal tenderness, in the left lower quadrant, rebound tenderness, is not appreciated. Vital Signs: 14:09 BP 153 / 87; Pulse 108; Resp 16; Temp 98.2; Pulse Ox 100% on R/A; Pain 9/10; hb 15:16 BP 159 / 96; Pulse 84; Resp 17; Pulse Ox 100% on R/A; Pain 10/10; ed1 16:12 BP 142 / 69; Pulse 84; Resp 18; Pulse Ox 100% on R/A; Pain 9/10; ed1 MDM: 15:16 Patient medically screened. gs 17:22 Differential diagnosis: diverticulitis, non-specific abd pain. Data reviewed: vital gs signs, nurses notes. Response to treatment: the patient's symptoms have markedly improved after treatment, and as a result, I will discharge patient. ED course: pt has no change in labs non surgical abdomen will discharge encourage getting rx filled. 11/02 15:26 Order name: CBC with Diff; Complete Time: 16:24 11/02 15:26 Order name: Basic Metabolic Panel 11/02 16:40 Order name: Urine Dipstick--Ancillary (enter results) bd Administered Medications: 15:52 Drug: TORadol 15 mg Route: IVP; Site: right forearm; rv 16:41 Follow up: Response: No adverse reaction; Pain is decreased ed1 15:53 Drug: NS 0.9% 1000 ml Route: IV; Rate: 1 bolus; Site: right forearm; rv 16:41 Follow up: IV Status: Completed infusion; IV Intake: 1000ml ed1 Disposition: 11/02/17 16:24 Discharged to Home. Impression: Diverticulitis of large intestine without perforation or abscess without bleeding. - Condition is Stable. - Discharge Instructions: Diverticulitis. - Prescriptions for Flagyl 500 mg Oral Tablet - take 1 tablet by ORAL route every 6 hours for 10 days; 40 tablet. Keflex 500 mg Oral Capsule - take 2 capsule by ORAL route every 12 hours for 10 days; 40 capsule. Tylenol- Codeine #4 300-60 mg Oral Tablet - take 1 tablet by ORAL route every 6 hours As needed; 12 tablet. - Medication Reconciliation Form, Thank You Letter, Antibiotic Education, Prescription Opioid Use form. - Follow up: Dacia Wolf DO; When: 2 - 3 days; Reason: Re-evaluation by your physician. Signatures: Dispatcher [employer] EDMS Ana Maria Gallo, ELECTRICAL LINEMAN ELECTRICAL LINEMAN ed1 Kenya Rodriguez RN RN hb Starr, Gregory, MD MD Man Wall RN RN rv Corrections: (The following items were deleted from the chart) 16:42 16:24 11/02/2017 16:24 Discharged to Home. Impression: Diverticulitis of large ed1 intestine without perforation or abscess without bleeding. Condition is Stable. Forms are Medication Reconciliation Form, Thank You Letter, Antibiotic Education, Prescription Opioid Use. Follow up: Dacia Wolf; When: 2 - 3 days; Reason: Re-evaluation by your physician.
[2017-11-02 16:50] LABS: Urine Blood NEGATIVE (NEG); Urine Glucose NEGATIVE (NEG); Urine Protein NEGATIVE (NEG); Urine Specific Gravity 1.015 (1.005-1.030)
[2017-11-02 16:59] LABS: Potassium 4.1 mmol/L (3.5-5.1)
[2017-11-02 17:03] VITALS: TEMP 98.2; O2SAT 100
[2017-11-02 17:06] VITALS: BP 142/69
== END 2017-11-02 16:42 | disposition home or self-care (01) ==
LOC: ER 13:51
DX: K57.32 Diverticulitis of large intestine without perforation or abscess without bleeding (principal); I10 Essential (primary) hypertension; Z88.5 Allergy status to narcotic agent; Z88.8 Allergy status to other drugs, medicaments and biological substances; Z91.040 Latex allergy status; Z91.048 Other nonmedicinal substance allergy status
CPT/HCPCS: 36415; 80048; 81003; 85025; 96361; 96374; 99284; J7030

== ENCOUNTER 2020-12-22 09:09 | Emergency (ER) | payer BC ==
[2020-12-22] MEDS ORDERED: AMOX/K CLAV 875 MG TAB ONE (09:44)
[2020-12-22] MEDS ORDERED: HYDROCODONE/APAP 10/325 TAB ONE (09:44)
[2020-12-22] MEDS ORDERED: LIDOCAINE 1% 20 ML MDV ONE (09:45)
[2020-12-22] MEDS ORDERED: ONDANSETRON 4 MG (ODT) TAB ONE (09:53)
--- NOTE | 2020-12-22 10:29 | EDPHYS ---
Physician Documentation [facility] Name: Nichole Campbell Age: 55 yrs Sex: Female : 1965 Arrival Date: 12/22/2020 Time: 09:10 Bed 20 Private MD: ED Physician Colby Romero HPI: 12/22 16:25 This 55 yrs old Female presents to ER via Wheelchair with complaints of kb Laceration To Leg. 16:25 The patient has a laceration related to: pig rammed tusk into pt occurred at home, kb outdoors, and there are no complicating factors. The injury was accidental. The laceration(s) is(are) located on the lateral aspect of right calf. Onset: The symptoms/episode began/occurred just prior to arrival. Associated signs and symptoms: The patient has no apparent associated signs or symptoms. The patient has not experienced similar symptoms in the past. The patient has not recently seen a physician. Pt states she was outside by her pig and it rammed its tusk into her leg. . Historical: - Allergies: 09:17 Latex, Natural Rubber; sv 09:17 lysol; sv 09:17 Morphine; itching; sv - PMHx: 09:17 Diverticulitis; Hypertension; sv - Immunization history:: Last tetanus immunization: up to date. ROS: 16:24 Constitutional: Negative for fever, chills, and weight loss. kb 16:24 Skin: Positive for laceration(s), of the lateral aspect of right calf. 16:24 All other systems are negative. Exam: 16:25 Constitutional: This is a well developed, well nourished patient who is awake, alert, kb and in no acute distress. Head/Face: Normocephalic, atraumatic. ENT: Moist Mucous membranes Respiratory: Respirations even and unlabored. No increased work of breathing, no retractions or nasal flaring. MS/ Extremity: Pulses equal, no cyanosis. Neurovascular intact. Full, normal range of motion. Neuro: Awake and alert, GCS 15, oriented to person, place, time, and situation. Moves all extremities. Normal gait. Psych: Awake, alert, with orientation to person, place and time. Behavior, mood, and affect are within normal limits. 16:25 Skin: injury, laceration(s), the wound is approximately 8 cm(s), of the lateral aspect of right calf, that can be described as clean, no foreign body, linear, with mild bleeding. Vital Signs: 09:16 Weight 84.82 kg; Height 5 ft. 7 in. (170.18 cm); Pain 2/10; sv 10:20 BP 173 / 96 LA (auto/); Pulse 79; Pulse Ox 100% on R/A; ap3 09:16 Body Mass Index 29.29 (84.82 kg, 170.18 cm) sv Laceration: 10:15 Wound Repair of 8cm ( 3.1in ) subcutaneous laceration to lateral aspect of right calf. kb Linear shaped.. Distal neuro/vascular/tendon intact. Anesthesia: Wound infiltrated with 15 mls of 1% lidocaine. Wound prep: Extensive cleansing with hibiclenz by me, Wound irrigation with saline by me, Copious irrigation, wound irrigated with 2L NS and betadine mixture. Skin closed with 7 4-0 Prolene using cruciate sutures. Patient tolerated well. MDM: 09:17 Patient medically screened. kb 10:15 Data reviewed: vital signs, nurses notes. Data interpreted: Pulse oximetry: on room air kb is 100 %. Interpretation: normal. Counseling: I had a detailed discussion with the patient and/or guardian regarding: the historical points, exam findings, and any diagnostic results supporting the discharge/admit diagnosis, the need for outpatient follow up, a family practitioner, to return to the emergency department if symptoms worsen or persist or if there are any questions or concerns that arise at home. 12/22 09:18 Order name: Dressing - Wound; Complete Time: 10:18 kb 12/22 09:18 Order name: Gloves, Sterile; Complete Time: 10:18 kb 12/22 09:18 Order name: Prolene, Sutures; Complete Time: 10:19 kb 12/22 09:18 Order name: Setup Suture Tray; Complete Time: 10:19 kb Administered Medications: 09:20 Drug: Augmentin (Amoxicillin-Clavulanate) 875 mg Route: PO; ap3 10:18 Follow up: Response: No adverse reaction ap3 09:20 Drug: [place] (HYDROcodone-acetaminophen) 10 mg-325 mg 1 tabs Route: PO; ap3 10:18 Follow up: Response: No adverse reaction ap3 09:32 Drug: Ondansetron 4 mg Route: PO; ap3 10:18 Follow up: Response: No adverse reaction ap3 10:17 Drug: Tetanus-Diphtheria Toxoid Adult 0.5 ml {Electronic Engineering Technician: [employer]. Exp: ap3 06/04/2022. Lot #: [id number]. } Route: IM; Site: right deltoid; 10:18 Follow up: Response: No adverse reaction ap3 10:18 Drug: Lidocaine (1 %) 1 vials {Note: by Jasbir Sanchez.} Volume: 20 ml; Route: ap3 Infiltration; Disposition: 18:33 Co-signature as Attending Physician, Colby Romero MD. rn 18:33 I agree with the assessment and plan of care. Attestation: The patient's history, exam rn findings, diagnostics, and a summary of any interventions or procedures was reviewed in detail with Ethel GIRON. Disposition Summary: 12/22/20 10:28 Discharge Ordered Location: Home Condition: Stable Diagnosis - Laceration without foreign body of lower leg - right Followup: kb - With: Emergency Department - When: As needed - Reason: Worsening of condition Followup: kb - With: Private Physician - When: 2 - 3 days - Reason: Recheck today's complaints, Continuance of care, Re-evaluation by your physician Discharge Instructions: - Discharge Summary Sheet kb - Laceration Care, Adult, [id number] kb Forms: - Medication Reconciliation Form kb - Thank You Letter kb - Antibiotic Education kb - Prescription Opioid Use Prescriptions: - Augmentin 875-125 mg Oral Tablet - take 1 tablet by ORAL route every 12 hours for 10 days; 20 tablet; Refills: 0, kb Product Selection Permitted Signatures: Ethel Fontana FNP-C FNP-Ckb Verde, Stephanie, RN RN sv Nieto, Roman, MD MD rn Prokisch, Amanda, RN RN ap3 Corrections: (The following items were deleted from the chart) 10:22 10:15 Wound Repair of 7cm ( 2.8in ) subcutaneous laceration to lateral aspect of right kb calf. Linear shaped.. Distal neuro/vascular/tendon intact. Anesthesia: Wound infiltrated with 15 mls of 1% lidocaine. Wound prep: Extensive cleansing with hibiclenz by me, Wound irrigation with saline by me, Copious irrigation, wound irrigated with 2L NS and betadine mixture. Skin closed with 7 4-0 Prolene using cruciate sutures. Patient tolerated well. kb
--- NOTE | 2020-12-22 10:29 | ER ---
Nurse's Notes [facility] Name: Nichole Campbell Age: 55 yrs Sex: Female : 1965 Arrival Date: 12/22/2020 Time: 09:10 Bed 20 Private MD: Diagnosis: Laceration without foreign body of lower leg-right Presentation: 12/22 09:16 Chief complaint: Patient states: was feeding her chickens and they have a pet 300 pound pig that ended up possibly biting her and tossed her. c/o pain/bleeding to the RLE. Coronavirus screen: Vaccine status: Patient reports receiving the 1st dose of the Covid vaccine. Client denies travel out of the [place] in the last 14 days. Ebola Screen: No symptoms or risks identified at this time. Risk Assessment: Do you want to hurt yourself or someone else? Patient reports no desire to harm self or others. Onset of symptoms was December 22, 2020. 09:16 Method Of Arrival: Wheelchair sv 09:16 Acuity: GIBSON 3 sv Historical: - Allergies: 09:17 Latex, Natural Rubber; sv 09:17 lysol; sv 09:17 Morphine; itching; sv - PMHx: 09:17 Diverticulitis; Hypertension; sv - Immunization history:: Last tetanus immunization: up to date. Vital Signs: 09:16 Weight 84.82 kg; Height 5 ft. 7 in. (170.18 cm); Pain 2/10; sv 10:20 BP 173 / 96 LA (auto/); Pulse 79; Pulse Ox 100% on R/A; ap3 09:16 Body Mass Index 29.29 (84.82 kg, 170.18 cm) sv ED Course: 09:10 Patient arrived in ED. mr 09:17 Ethel Fontana FNP-C is PHCP. kb 09:17 Colby Romero MD is Attending Physician. kb 09:17 Triage completed. sv 09:17 Arm band placed on. sv 09:56 Christie Lowery, RN is Primary Nurse. ap3 Administered Medications: 09:20 Drug: Augmentin (Amoxicillin-Clavulanate) 875 mg Route: PO; ap3 10:18 Follow up: Response: No adverse reaction ap3 09:20 Drug: Leggett (HYDROcodone-acetaminophen) 10 mg-325 mg 1 tabs Route: PO; ap3 10:18 Follow up: Response: No adverse reaction ap3 09:32 Drug: Ondansetron 4 mg Route: PO; ap3 10:18 Follow up: Response: No adverse reaction ap3 10:17 Drug: Tetanus-Diphtheria Toxoid Adult 0.5 ml {[employer]cer: [employer]. Exp: ap3 06/04/2022. Lot #: [id number]. } Route: IM; Site: right deltoid; 10:18 Follow up: Response: No adverse reaction ap3 10:18 Drug: Lidocaine (1 %) 1 vials {Note: by Jasbir Sanchez.} Volume: 20 ml; Route: ap3 Infiltration; Outcome: 10:28 Discharge ordered by MD. catherine 10:55 Patient left the ED. aj2 Signatures: Ethel Fontana, MACK CORRALES-Daniella Pacheco RN RN sv Rivera, Mary mr Prokisch, Amanda, RN RN ap3 Jenkins, Angelea aj2
[2020-12-22] MEDS ORDERED: TETANUS & DIPHTHERIA TOX,ADULT 0.5 ML VIAL ONE (10:35)
[2020-12-22 10:59] VITALS: BP 173/96; O2SAT 100
== END 2020-12-22 10:55 | disposition home or self-care (01) ==
LOC: ER 09:09
PROC: 0JQN0ZZ Repair Right Lower Leg Subcutaneous Tissue and Fascia, Open Approach (ICD-10-PCS; principal; 2020-12-22)
DX: S81.811A Laceration without foreign body, right lower leg, initial encounter (principal); W55.42XA Struck by pig, initial encounter; I10 Essential (primary) hypertension; Z23 Encounter for immunization; Z88.5 Allergy status to narcotic agent; Z91.040 Latex allergy status; Z91.048 Other nonmedicinal substance allergy status
CPT/HCPCS: 90471; 90714; 99282

== ENCOUNTER 2020-12-23 17:40 | Emergency (ER) | payer BC ==
--- NOTE | 2020-12-23 18:29 | EDPHYS ---
Physician Documentation [facility] Name: Nichole Campbell Age: 55 yrs Sex: Female : 1965 Arrival Date: 12/23/2020 Time: 17:41 Bed DX3 Private MD: Dacia Wolf H ED Physician Justin Todd HPI: 12/23 18:29 This 55 yrs old Female presents to ER via Ambulatory with complaints of Leg jr8 Pain, Wound Check. 18:29 Patient was seen yesterday for a wound to the right leg after being gashed by a pig. jr8 Patient had laceration repair yesterday. Today stated that she felt the burning and tingling-like sensation to the area and wanted us to recheck the wound. Denies fevers or any other problems at this time.. 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 - Social history:: Smoking status: Patient denies any tobacco usage or history of. ROS: 18:29 Eyes: Negative for injury, pain, redness, and discharge, ENT: Negative for injury, jr8 pain, and discharge, Neck: Negative for injury, pain, and swelling, Cardiovascular: Negative for chest pain, palpitations, and edema, Respiratory: Negative for shortness of breath, cough, wheezing, and pleuritic chest pain, Abdomen/GI: Negative for abdominal pain, nausea, vomiting, diarrhea, and constipation, Back: Negative for injury and pain, Neuro: Negative for headache, weakness, numbness, tingling, and seizure. 18:29 MS/extremity: Positive for laceration, pain, of the lateral aspect of right calf. 18:29 Skin: Positive for laceration(s). Exam: 18:30 Constitutional: This is a well developed, well nourished patient who is awake, alert, jr8 and in no acute distress. Chest/axilla: Normal chest wall appearance and motion. Nontender with no deformity. No lesions are appreciated. Respiratory: Lungs have equal breath sounds bilaterally, clear to auscultation and percussion. No rales, rhonchi or wheezes noted. No increased work of breathing, no retractions or nasal flaring. Skin: Warm, dry with normal turgor. Normal color with no rashes, no lesions, and no evidence of cellulitis. Neuro: Awake and alert, GCS 15, oriented to person, place, time, and situation. Cranial nerves II-XII grossly intact. Motor strength 5/5 in all extremities. Sensory grossly intact. Cerebellar exam normal. Normal gait. 18:30 Musculoskeletal/extremity: Sutures noted to the right lateral leg. No erythema, discharge, signs of cellulitis present. Mild tenderness to that local region which reproduces her pain. No other acute findings noted. Remainder of extremities unremarkable.. Vital Signs: 17:59 BP 139 / 91; Pulse 90; Resp 17; Temp 98.1; Pulse Ox 100% ; Weight 84.82 kg; Height 5 jl7 ft. 7 in. (170.18 cm); Pain 5/10; 18:00 BP 128 / 86; Pulse 89; Resp 18; Pulse Ox 100% ; ld1 17:59 Body Mass Index 29.29 (84.82 kg, 170.18 cm) jl7 MDM: 18:13 Patient medically screened. jr8 18:31 Data reviewed: vital signs, nurses notes, and as a result, I will discharge patient. jr8 Data interpreted: Pulse oximetry: on room air is 100 %. Interpretation: normal. Counseling: I had a detailed discussion with the patient and/or guardian regarding: the historical points, exam findings, and any diagnostic results supporting the discharge/admit diagnosis, the need for outpatient follow up, a family practitioner, to return to the emergency department if symptoms worsen or persist or if there are any questions or concerns that arise at home. ED course: Discussed with patient that wound appears well approximated. No other acute signs for infection at this time. Continue home management of her laceration and follow-up PCP in the next couple days. If she were to start to have discharge, erythema, increased pain to come back for further evaluation. Patient good with plan at this time.. Administered Medications: No medications were administered Disposition: 12/24 07:55 Co-signature as Attending Physician, Justin Todd MD I agree with the assessment and noreen plan of care. Disposition Summary: 12/23/20 18:28 Discharge Ordered Location: Home jr8 Problem: new jr8 Symptoms: have improved jr8 Condition: Stable jr8 Diagnosis - Pain in right leg jr8 Followup: jr8 - With: Dacia Wolf, DO - When: 2 - 3 days - Reason: Recheck today's complaints, Continuance of care, Re-evaluation by your physician Discharge Instructions: - Discharge Summary Sheet jr8 - Musculoskeletal Pain jr8 - Wound Infection jr8 Forms: - Medication Reconciliation Form jr8 - Thank You Letter jr8 - Antibiotic Education jr8 - Prescription Opioid Use jr8 Signatures: Justin Todd MD MD cha Roszak, Josh, PA PA jr8 Thelma Delgado RN RN jl7 Corrections: (The following items were deleted from the chart) 12/23 18:02 18:01 PMHx: Hypertension; jl7 jl7 18:30 18:29 Patient was seen yesterday for a wound to the left leg after being gashed by a jr8 pig. Patient had laceration repair yesterday. Today stated that she felt the burning and tingling-like sensation to the area and wanted us to recheck the wound. Denies fevers or any other problems at this time.. jr8
--- NOTE | 2020-12-23 18:29 | ER ---
Nurse's Notes [facility] Name: Nichole Campbell Age: 55 yrs Sex: Female : 1965 Arrival Date: 12/23/2020 Time: 17:41 Bed DX3 Private MD: Dacia Wolf H Diagnosis: Pain in right leg Presentation: 12/23 17:59 Chief complaint: Patient states: Was bitten by pig on right lateral calf yesterday, jl7 sutured here and reports a '[place] horse/cramp' for the last 2 hours. Coronavirus screen: At this time, the client does not indicate any symptoms associated with coronavirus-19. Ebola Screen: No symptoms or risks identified at this time. Initial Sepsis Screen: Does the patient meet any 2 criteria? No. Patient's initial sepsis screen is negative. Does the patient have a suspected source of infection? No. Patient's initial sepsis screen is negative. Risk Assessment: Do you want to hurt yourself or someone else? Patient reports no desire to harm self or others. Onset of symptoms was December 23, 2020 at 16:00. 17:59 Method Of Arrival: Ambulatory [facility] 17:59 Acuity: GIBSON 4 jl7 Triage Assessment: 18:01 General: Appears in no apparent distress. uncomfortable, Behavior is calm, cooperative, jl7 appropriate for age. Pain: Complains of pain in lateral aspect of right calf Pain currently is 5 out of 10 on a pain scale. 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 - Social history:: Smoking status: Patient denies any tobacco usage or history of. Screenin:00 Abuse screen: Denies threats or abuse. Denies injuries from another. Nutritional ld1 screening: No deficits noted. Tuberculosis screening: No symptoms or risk factors identified. Fall Risk None identified. Assessment: 18:00 General: Appears in no apparent distress. comfortable, Behavior is calm, cooperative, ld1 appropriate for age. 18:00 Pain: Denies pain. Neuro: Level of Consciousness is awake, alert, obeys commands, ld1 Oriented to person, place, time, situation. Cardiovascular: Capillary refill < 3 seconds Patient's skin is warm and dry. Respiratory: Airway is patent Respiratory effort is even, unlabored, Respiratory pattern is regular, symmetrical. GI: Abdomen is flat, non-distended. : No signs and/or symptoms were reported regarding the genitourinary system. EENT: No signs and/or symptoms were reported regarding the EENT system. Derm: No signs and/or symptoms reported regarding the dermatologic system. Musculoskeletal: No signs and/or symptoms reported regarding the musculoskeletal system. Injury Description: Laceration sustained to right calf Pt has sutures to right lower leg. No signs of infection. Vital Signs: 17:59 BP 139 / 91; Pulse 90; Resp 17; Temp 98.1; Pulse Ox 100% ; Weight 84.82 kg; Height 5 jl7 ft. 7 in. (170.18 cm); Pain 5/10; 18:00 BP 128 / 86; Pulse 89; Resp 18; Pulse Ox 100% ; ld1 17:59 Body Mass Index 29.29 (84.82 kg, 170.18 cm) jl7 ED Course: 17:41 Patient arrived in ED. am2 17:41 Dacia Wolf DO is Private Physician. am2 18:00 Patient has correct armband on for positive identification. Call light in reach. Pulse ld1 ox on. NIBP on. 18:00 No provider procedures requiring assistance completed. Patient did not have IV access ld1 during this emergency room visit. 18:01 Triage completed. jl7 18:02 Arm band placed on right wrist. jl7 18:13 Henri Swan PA is PHCP. jr8 18:13 Justin Todd MD is Attending Physician. jr8 18:28 Dacia Wolf DO is Referral Physician. jr8 Administered Medications: No medications were administered Outcome: 18:28 Discharge ordered by . jr8 18:37 Discharged to home ambulatory. ld1 18:37 Condition: stable ld1 18:37 Discharge instructions given to patient, Instructed on discharge instructions, follow up and referral plans. Demonstrated understanding of instructions, follow-up care. 18:37 Patient left the ED. ld1 Signatures: Henri Swan PA PA jr8 Leal, Jahala, RN RN jl7 Christie Lopez Lauren, RN RN ld1 Corrections: (The following items were deleted from the chart) 18:02 18:01 PMHx: Hypertension; dayana anne
[2020-12-23 18:45] VITALS: TEMP 98.1; O2SAT 100
[2020-12-23 18:53] VITALS: BP 128/86
== END 2020-12-23 18:37 | disposition home or self-care (01) ==
LOC: ER 17:40
DX: S81.811S Laceration without foreign body, right lower leg, sequela (principal)
CPT/HCPCS: 99283